=== PATIENT | female | born 1960 | race Caucasian/White ===

== ENCOUNTER → 2016-11-29 | Day surgery (SDC) | payer OTHER, BC ==
--- NOTE | 2016-11-30 15:55 | PATH ---
Surgical Pathology Report Patient Name: ZI AVILEZ [facility]. Rec. #: [id number] /Age/Gender: 1960 (Age: 56) / F Account: [id number] Location: [facility] Taken: 11/29/2016 Received: 11/29/2016 Reported: 11/30/2016 Physicians: Erika Mcneil M.D. Specimen(s) Received A: RIGHT BREAST SPECIMEN WITH CALCIFICATIONS SITE #1 POSTERIOR B: RIGHT BREAST SPECIMEN WITHOUT CALCIFICATIONS SITE #1 POSTERIOR C: RIGHT BREAST SPECIMEN WITH CALCIFICATIONS SITE #2 ANTERIOR D: RIGHT BREAST SPECIMEN WITHOUT CALCIFICATIONS SITE #2 ANTERIOR Clinical History Nonpalpable lesion Mammographic findings: Suspicious microcalcifications 2 sites (posterior and anterior) calcifications Final Diagnosis A. BREAST, RIGHT, WITH CALCIFICATIONS, SITE# 1 POSTERIOR, STEREOTACTIC BIOPSY: BENIGN BREAST TISSUE SHOWING COLUMNAR CELL CHANGES AND MICROCYST FORMATION WITH ASSOCIATED CALCIFICATIONS. B. BREAST, RIGHT, WITHOUT CALCIFICATIONS, SITE #1 POSTERIOR, STEREOTACTIC BIOPSY: BENIGN BREAST TISSUE. C. BREAST, RIGHT, WITH CALCIFICATIONS, SITE #2 ANTERIOR, STEREOTACTIC BIOPSY: BENIGN BREAST TISSUE SHOWING COLUMNAR CELL CHANGES AND MICROCYST FORMATION WITH ASSOCIATED CALCIFICATIONS. D. BREAST, RIGHT, WITHOUT CALCIFICATIONS,SITE #2 ANTERIOR,STEREOTACTIC BIOPSY: BENIGN BREAST TISSUE. Electronically Signed Migdalia Ramírez M.D. Gross Description A. Received in formalin, labeled "right breast with calcifications site 1 posterior," are 8 bautista-yellow, cylindrical portions of fibroadipose tissue ranging from 0.9-1.5 cm. in length and averaging 0.3 cm. in diameter. The specimen is submitted in toto in one cassette. B. Received in formalin, labeled "right breast without calcifications site 1 posterior," are 4 bautista-yellow, cylindrical portions of fibroadipose tissue ranging from 0.6-1.5 cm. in length and averaging 0.2 cm. in diameter. The specimen is submitted in toto in one cassette. Time to formalin fixation: 5 minutes Total formalin fixation time: Approximately 7 hours. C. Received in formalin, labeled "right breast with calcifications site 2 anterior," are 5 bautista-yellow, cylindrical portions of fibroadipose tissue ranging from 1.4-2.5 cm. in length and averaging 0.2 cm. in diameter. The specimen is submitted in toto in one cassette. D. Received in formalin, labeled "right breast without calcifications site 2 anterior," are 4 bautista-yellow, cylindrical portions of fibroadipose tissue ranging from 0.9-2.3 cm. in length and averaging 0.2 cm. in diameter. The specimen is submitted in toto in one cassette. Time to formalin fixation: 5 minutes Total formalin fixation time: Approximately 6 hours. 11/29/2016 [facility]
== END | disposition home or self-care (01) ==
LOC: FMAMMOTONE 10:07
PROVIDERS: ATTEND Internal Medicine
PROC: 0HBT3ZX Excision of Right Breast, Percutaneous Approach, Diagnostic (ICD-10-PCS; principal; 2016-11-29)
DX: N60.11 Diffuse cystic mastopathy of right breast (principal); R92.1 Mammographic calcification found on diagnostic imaging of breast; N64.89 Other specified disorders of breast
CPT/HCPCS: 19081; 19082; 87899; 88305-TC; A4648

== ENCOUNTER 2019-02-06 04:56 | Day surgery (SDC) | payer OTHER, BC ==
[2019-01-30 09:05] VITALS: BMI 24.0
[2019-02-06] MEDS ORDERED: LIDOCAINE HCL 1%, 10 MG/ML (20ML VIAL) ONE (11:32)
[2019-02-06] MEDS ORDERED: MIDAZOLAM HCL 2 MG/2 ML SINGLE DOSE VIAL ONE (11:36)
[2019-02-06] MEDS ORDERED: LIDOCAINE HCL/PF 2% SDV 5ML VIAL ONE (11:36)
[2019-02-06] MEDS ORDERED: PROPOFOL 20 ML ONE (11:36)
[2019-02-06] MEDS ORDERED: ceFAZolin SODIUM 1 GM VIAL ONE (12:05)
[2019-02-06] MEDS ORDERED: LIDOCAINE HCL 1%, 10 MG/ML (50 mL VIAL) IJ ONE ×2 (12:07→12:15)
[2019-02-06] MEDS ORDERED: ceFAZolin SODIUM 1 GM VIAL IVPB ONE (12:08)
[2019-02-06] MEDS ORDERED: SUCCINYLCHOLINE CHLORIDE 200 MG/10 ML VIAL ONE (12:12)
[2019-02-06] MEDS ORDERED: DEXAMETHASONE SOD PHOSPHATE 4 MG/1 ML VIAL ONE (12:28)
[2019-02-06] MEDS ORDERED: KETOROLAC TROMETHAMINE 30 MG/1 ML VIAL ONE (12:33)
[2019-02-06] MEDS ORDERED: BACITRACIN 15 GM TUBE TOPICAL OINTMENT ONE (12:44)
[2019-02-06] MEDS ORDERED: BACITRACIN 15 GM TUBE TOPICAL OINTMENT TP ONE (12:48)
[2019-02-06] MEDS ORDERED: ONDANSETRON 4 MG/2 ML VIAL IVPUSH PRN (13:08)
[2019-02-06] MEDS ORDERED: ACETAMINOPHEN 325 MG TABLET (FP) PO PRN (13:08)
[2019-02-06] MEDS ORDERED: oxyCODONE HCL 5 MG TABLET PO PRN (13:08)
[2019-02-06] MEDS ORDERED: LACTATED RINGERS SOLUTION 1,000 ML IV SCH (13:15)
[2019-02-06 14:33] VITALS: TEMP 97.6
[2019-02-06 15:24] VITALS: BP 159/83; PULSE 94
--- NOTE | 2019-02-07 06:40 | OP ---
DATE OF OPERATION: 02/06/2019 PREOPERATIVE DIAGNOSIS: Right breast microcalcification. POSTOPERATIVE DIAGNOSIS: Right breast microcalcification. PROCEDURE: Right breast bracket wire localized excisional biopsy. SURGEON: Emily Hebert MD ANESTHESIA: General. ESTIMATED BLOOD LOSS: Minimal. COMPLICATIONS: None. This was a sterile procedure. INDICATIONS: The patient presented with a screening mammography that noted indeterminant calcifications in the upper right breast. Though they had been previously biopsied the radiologist felt these should again be sampled, and after discussion, decision was to go ahead with an excisional biopsy. The procedure was discussed with all of the questions answered. PROCEDURE IN DETAIL: Patient was brought to [facility] in [place], taken down to Radiology where wires were placed into the upper right breast to bracket the area of microcalcifications and the 2 clips from prior procedures. She was then brought to the operating room, and after induction of general anesthesia and IV antibiotics, the right breast was prepped and draped in the usual sterile fashion, and the area in the upper right breast was anesthetized with 1% lidocaine without epinephrine. A periareolar incision was made in the upper right breast, and the wires were used as a guide to get down to the area of interest. This was excised en bloc and sent as a right breast excisional biopsy. Specimen radiograph showed both the clips and the calcifications to be within the specimen. This was then sent to Pathology for permanent section. Hemostasis assured with direct pressure. Of note, there were 3 wires placed by the radiologist at the time of the localization; however, 1 of them fell out at removal of the dressing, and on pictures it appears to be very superficial, particularly on the ML view, but there were 2 other wires in this location; therefore, the localization excision was completely performed. Hemostasis was assured with electrocautery. The parenchyma was approximated with interrupted 2-0 Vicryl. Skin approximated with interrupted 3-0 Vicryl and running 4-0 Prolene. A sterile dressing with Tegaderm and 4 x 4's was applied. She tolerated the procedure well, was extubated on the operating room table and taken to Recovery in good condition. Erika [id number]
--- NOTE | 2019-02-10 17:03 | PATH ---
Surgical Pathology Report Patient Name: ZI AVILEZ [facility]. Rec. #: [id number] /Age/Gender: 1960 (Age: 58) / F Account: [id number] Location: [facility] SURGICAL Taken: 02/06/2019 Received: 02/06/2019 Reported: 02/10/2019 Physicians: Emily Hebert M.D. Specimen(s) Received RIGHT BREAST WIRE LOCALIZED EXCISION Clinical History Microcalcifications, abnormal mammogram Final Diagnosis RIGHT BREAST, WIRE LOCALIZED EXCISION: BREAST TISSUE SHOWING INTRADUCTAL PAPILLOMA AND PROLIFERATIVE FIBROCYSTIC CHANGES WITH USUAL DUCTAL HYPERPLASIA (UDH), RADIAL SCAR, SCLEROSING ADENOSIS, COLUMNAR CELL CHANGE, APOCRINE METAPLASIA, MICROCYSTS, STROMAL FIBROSIS, AND MICROCALCIFICATIONS. Comment: Immunohistochemical stains (block A9) performed and interpreted at [facility] show the following results: smooth muscle myosin heavy chain and p63 show intact myoepithelial layer at the area of radial scar. Electronically Signed Pepe Matias M.D. Gross Description Received fresh on an [employer]uGrid, labeled "right breast wire localized excision," is a 4.8 x 4.0 x 2.1 cm. bautista-yellow, irregular, portion of fibroadipose tissue with 2 needle localization wires present. There are no orienting sutures present. There is no skin or nipple present. The specimen is inked blue and serially sectioned. Sectioning reveals abundant dense, white, focally firm fibrous tissue. No definitive mass is identified. [employer] sections (approximately 95% of the specimen) are sequentially submitted in 10 cassettes. Time to formalin fixation: 30 minutes Total formalin fixation time: Approximately 6 hours. __ DL/02/06/2019 [place]/02/06/2019
== END 2019-02-06 16:02 | disposition home or self-care (01) ==
LOC: JASU-SURG 04:56
PROVIDERS: ATTEND Surgery
PROC: 0HBT0ZX Excision of Right Breast, Open Approach, Diagnostic (ICD-10-PCS; principal; 2019-02-06 11:00)
DX: D24.1 Benign neoplasm of right breast (principal); N60.81 Other benign mammary dysplasias of right breast; N60.31 Fibrosclerosis of right breast; N60.21 Fibroadenosis of right breast; N64.89 Other specified disorders of breast
CPT/HCPCS: 19281; 88307-TC; 88341-TC; 88342-TC; 94760

== ENCOUNTER 2021-04-12 11:23 | Emergency (ER) | payer OTHER, BC ==
[2021-04-12 11:41] VITALS: BP 160/72; PULSE 86; TEMP 97.9; BMI 26.6
== END 2021-04-12 12:24 | disposition home or self-care (01) ==
LOC: JERFT 11:23
DX: L03.818 Cellulitis of other sites (principal)
CPT/HCPCS: 99281-25